=== PATIENT | female | born 1985 | race African-American/Black ===

== ENCOUNTER 2018-08-24 17:30 | Emergency (ER) | payer OTHER | END 2018-08-24 22:47 | disposition home or self-care (01) | LOC: JER 17:30 ==

== ENCOUNTER 2019-12-23 10:00 | Inpatient (IN) | payer OTHER ==
--- OUTSIDE RECORDS SUMMARY | 2019-12-23 10:16 | XMS ---
:1985 Author Organization [facility] Support Name Relationship Address Phone [employer] Unavailable [address] [place] [address] DARRION LANDRUM [address] [place] [address] DARRION LANDRUM Unavailable [address] [place] [address] Re-disclosure Warning The records that you are about to access may contain information from federally- assisted alcohol or drug abuse programs. If such information is present, then the following federally mandated warning applies: This information has been disclosed to you from records protected by federal confidentiality rules (42 CFR part 2). The federal rules prohibit you from making any further disclosure of this information unless further disclosure is expressly permitted by the written consent of the person to whom it pertains or as otherwise permitted by 42 CFR part 2. A general authorization for the release of medical or other information is NOT sufficient for this purpose. The Federal rules restrict any use of the information to criminally investigate or prosecute any alcohol or drug abuse patient.The records that you are about to access may contain highly sensitive health information, the redisclosure of which is protected by Article 27-F of the [facility] Public Health law. If you continue you may haveaccess to information: Regarding HIV / AIDS; Provided by facilities licensed or operated by the [facility] Office of Mental Health; or Provided by the [facility] Office for People With Developmental Disabilities. If such information is present, then the following [facility] mandated warning applies: This information has been disclosed to you from confidential records which are protected by state law. State law prohibits you from making any further disclosure of this information without the specific written consent of the person to whom it pertains, or as otherwise permitted by law. Any unauthorized further disclosure in violation of state law may result in a fine or mcfp sentence or both. A general authorization for the release of medical or other information is NOT sufficient authorization for further disclosure. Allergies and Adverse Reactions Type Description Substance Reaction Status Data Source(s ) No Known No Known Allergies No Known eCW3 ( [place] Allergies Allergies [facility]) Encounters Encounter Providers Location Date Indications Data Source(s ) Outpatient [facility] 08/10/2018 eCW3 ([facility] A28 12:00:00 AM Health Care) EDT - 08/10/2018 12:00:00 AM EDT Medications Medication Brand Start Product Dose Route Administrative Pharmacy [facility] Indications Reaction Description Data Name Date Form Instructions Instructions Source(s) Ondansetron Ondans .0 active Ondanse ozzie eCW3 4 MG etron 2019 {tabl 4 MG ([place] Disintegrat 4 MG 12:00: et_on [place] ing Oral 00 AM _[facility]_ [facility] EST [facility]) e_and _allo w_to_ disso lve} valacyclovi Valacy .0 active Valacyc lovir eCW3 r 500 MG clovir 2012 {tabl HCl 500 mg (H udson Oral Tablet HCl 12:00: et} [place] Valacyclovi 500 mg 00 AM Healt h r HCl 500 T Care) mg UNK 12/27/ suspend eC W3 Vitamins 2009 ed Vitamins ([place] (Dis) 12:00: (Dis) [place] 00 AM Health EDT Care) Vitamin B12 UNK suspend Vitamin B1 2 eCW3 ed ([facility]) Apixaban UNK suspend Apixaban eCW3 ed ([facility]) LOVENOX UNK active LOVENOX eCW3 ([facility]) Insurance Providers Payer name Policy type / Policy ID Covered Covered democrat's Policy Plan Coverage type democrat ID relationship to Vang Information vang [employer] PPO [id number] Problems, Conditions, and Diagnoses Code Display Name Description Problem Type Effective Data Dates Source(s) Z86.711 History of History of Problem 03/24/2019 eCW3 ([place] pulmonary embolism pulmonary embolism 12:00:00 [facility]) A60.04 Herpes simplex Herpes simplex Problem 06/06/2017 eCW3 ( [place] vulvovaginitis vulvovaginitis 12:00:00 AM [facility]) Z33.1 Problem eCW3 ([facility]) Social History Code Duration Value Status Description Data Source(s ) Smoking 06/17/2019 12:00:00 Never Smoker completed Never Smoker e CW3 ([facility]) Never Smoker completed Never Smoker eCW3 ([facility])
[2019-12-23] MEDS: ELECTROLYTE-148 SOLN 1,000 ML IV SCH ×2 (10:30→15:47)
[2019-12-23] MEDS ORDERED: BUTORPHANOL TARTRATE 1 MG/ML VIAL IVPB PRN (10:51)
[2019-12-23] MEDS ORDERED: PROMETHAZINE HCL 25 MG/1 ML VIAL IVPUSH PRN (10:51)
--- NOTE | 2019-12-23 10:59 | HP ---
Past Medical History - Admission Chief Complaint: Induction of Labor History of Present Illness: 34yo @ 38.1wks by LMP/sono here for IOL given h/o VTE. Delivery at 38/39 weeks recommended by MFM. Occ contractions. No VB/LOF. 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 PNC @ [facility] ([facility]) History Source: Patient - Past Medical History KEG HEADER: No: Alzheimer's, CVA, Dementia, Migraine, Multiple Sclerosis, Peripheral Neuropathy, Parkinson's, Seizure, Syncope, TIA, Vertigo, Other Cardiovascular: No: AFIB, Aneurysm, Aortic Insufficiency, Aortic Stenosis, CAD, CHF, Deep Vein Thrombosis, HTN, Hyperlipdemia, [place], Mitral Insufficiency, Mitral Stenosis, Murmur, Pulmonary Hypertension, Other Pulmonary: Yes: Pulmonary Embolus Gastrointestinal: No: Ascites, Cancer, Constipation, Crohn's Disease, Diverticulitis, Diverticulosis, Esophageal Varices, Gastritis, GERD, GI Bleed, Hemorrhoids, Hiatal Hernia, Inflamatory Bowel Disease, Irritable Bowel Disease, Pancreatitis, Peptic Ulcer Disease, Ulcerative Colitis, Other Renal/: No: Renal Failure, Renal Inusuff, BPH, Cancer, Hematuria, Hemodialysis, Neurogenic Bladder, Renal Calculi, UTI, Other Reproductive: No: Ectopic , Endometriosis, Fibroids, PID, Polycystic Ovary Syndrome, Postmenopausal, Other ...: 6 ...Para: 3 ...Term: 3 ...: 0 ...Spon : 1 ...Induced : 0 ...Living Children: 3 ... Weeks Gestation by Dates: 38.1 ...EDC by Dates: 01/05/20 ...EDC by Sono: 01/07/20 Heme/Onc: No: Anemia, B12 Deficiency, Bleeding Disorder, Cancer, Current Chemotherapy, Current Radiation Therapy, Hemochromatosis, Hypercoaguable State, Myeloproliferative Synd, Sickle Cell Disease, Sickle Cell Trait, Thrombocytopenia, Other Infectious Disease: No: AIDS, C-Diff, Herpes Zoster, HIV, MRSA, STD's, Tuberculosis, VREF, Other Psych: No: Addictions, Anxiety, Bipolar, Depression, Panic, Psychosis, Schizoph chiara, Other Musculoskeletal: No: Bursitis, Chronic low back pain, Hemiparesis, Hemiplegia, Osteoarthritis, Paraplegia, Other Rheumatology: No: Fibromyalgia, Gout, Lupus, Rheumatoid Arthritis, Sarcoidosis, Vasculitis, Other ENT: No: Allergic Rhinitis, Sinusitis, Other Endocrine: No: Bristol's Disease, Hasmukh's Disease, Diabetes Insipidus, Diabetes Mellitus, Hyperparathyroidism, Hyperthyroidism, Hypothyroidism, Osteopenia, SIADH, Other - Past Surgical History Past Surgical History: Yes: None Hx Myomectomy: No Hx Transabdominal Cerclage: No - Smoking History Smoking history: Never smoked Have you smoked in the past 12 months: No Aproximately how many cigarettes per day: 0 - Alcohol/Substance Use Hx Alcohol Use: No - Social History Usual Living Arrangement: Yes: With Spouse Do you think of yourself as: Straight/Heterosexual ADL: Independent History of Recent Travel: No Home Medications - Allergies Allergies/Adverse Reactions: Allergies Allergy/AdvReac Type Severity Reaction Status Date / Time No Known Drug Allergies Allergy Verified 12/13/12 02:16 - Home Medications Home Medications: Ambulatory Orders Pnv with Ca,No.72/Iron/FA [ Plus Tablet] 1 tab PO DAILY 12/12/12 Valacyclovir HCl [Valtrex -] 500 mg PO DAILY 12/12/12 Acetaminophen [Tylenol .Regular Strength -] 325 mg PO Q3H PRN #2 tablet 12/13/12 Ferrous Sulfate [Feosol] 325 mg PO BID #1 ud 12/13/12 Ibuprofen [Motrin -] 600 mg PO Q4H PRN #1 tablet 12/13/12 Vitamins (Sjr) - 1 tab PO DAILY #1 tablet 12/13/12 Review of Systems - Review of Systems Constitutional: reports: No Symptoms Cardiovascular: reports: No Symptoms Respiratory: reports: No Symptoms Gastrointestinal: reports: No Symptoms Physical Exam - Maternity Constitutional: Yes: Well Nourished, No Distress, Calm - Abdominal Exam/OB Number of Fetuses: Single Presentation: Vertex Contractions: Yes Regularity: Irregular Intensity: Unaware Monitor Mode: External Heart Rate Location: [facility] Category: I Accelerations: Non-Uniform Decelerations: None - Vaginal Exam/OB Vaginal Bleeding: No Dilatation (cm): 2 Effacement (%): 50 Amniotic Membrane Status: Intact Presentation: Vertex/Position Station: -3 - Physical Exam Edema: No Hemorrhage Risk Assessment - Risk Factors Medium Risk Factors: Yes: None High Risk Factors: Yes: None (On Anticoagulation for h/o VTE) Risk Score: 1 Risk Level: Medium Risk Imaging - Results Ultrasound: Report Reviewed Problem List - Problems (1) 38 weeks gestation of Code(s): Z3A.38 - 38 WEEKS GESTATION OF Assessment/Plan 34yo @ 38.1wks here for IOL given VTE history, recommended by MFM Admit to L&D Admission labs including Coags, COVID (negative) Cat I tracing, continuous EFM/toco Pitocin/Harry bulb; AROM when favorable Last Lovenox at 10/ 8PM. Will restart Lovenox 4-12 hours PP pending mode of delivery Stadol/epidural prn Anticipate JIN Nicole MD
[2019-12-23] MEDS ORDERED: OXYTOCIN 30 UNITS in 0.9% NS 30 UNIT/500 ML INFUS.BAG IVPB SCH (11:00)
[2019-12-23 11:14] LABS: BASO % 0.4 % (0-2.0); EOS % 0.3 % (0-4.5); HEMATOCRIT 31.3 % (32.4-45.2); HEMOGLOBIN 10.7 GM/dL (10.7-15.3); LYMPH % 22.7 % (8-40); MCH 31.8 pg (25.7-33.7); MCHC 34.2 g/dl (32.0-36.0); MEAN CELL VOLUME 92.8 fl (80-96); MEAN PLT VOLUME 7.9 fl (7.5-11.1); MONO % 7.5 % (3.8-10.2); NEUT % 69.1 % (42.8-82.8); PLATELET COUNT 303 K/MM3 (134-434); RBC 3.37 M/mm3 (3.60-5.2); WHITE BLOOD COUNT 10.3 K/mm3 (4.0-10.0)
[2019-12-23] MEDS ORDERED: OXYTOCIN 20 UNITS in 0.9% NS 20 UNIT/1,000 ML INFUS.BAG IV ONE (11:28)
[2019-12-23 11:38] LABS: BLOOD UREA NITROGEN 6.6 mg/dL (7-18); CREATININE 0.6 mg/dL (0.55-1.3); POTASSIUM 3.9 mmol/L (3.5-5.1)
[2019-12-23 11:39] LABS: INR 1.07 (0.83-1.09); PROTHROMBIN TIME (PATIENT) 12.6 SEC (9.7-13.0)
[2019-12-23 11:42] LABS: ACTIVATED PTT 26.1 SECONDS (25.2-36.5)
[2019-12-23 12:27] VITALS: BMI 33.0
--- NOTE | 2019-12-23 16:46 | PN ---
Progress Note, Labor Vaginal Exam #1 Labor Exam Date: 12/23/19 Labor Exam Time: 16:45 Heart Rate (range): Cat I Dilatation: 6 Effacement (%): 50 Amniotic Membrane Status: Intact Presentation: Vertex/Position Station: -3 Remarks: Having intermittent variable decels; pt examined and FB sitting in vagina Now 6cm AROM Epidural prn FHT improved Anticipate Joshua Nicole MD
--- NOTE | 2019-12-23 18:20 | PN ---
Progress Note, Labor Vaginal Exam #2 Labor Exam Date: 12/23/19 Labor Exam Time: 18:19 Heart Rate (range): Cat I Dilatation: 7-8 Effacement (%): 100 Amniotic Membrane Status: Ruptured Presentation: Vertex/Position Station: -2 Remarks: More uncomfortable Feeling pressure Declining epidural Anticipate Joshua Nicole MD
[2019-12-23] MEDS ORDERED: BISACODYL 10 MG SUPP.RECT RC PRN (19:03)
[2019-12-23] MEDS ORDERED: METHYLERGONOVINE MALEATE 0.2 MG/1 ML AMP IM PRN (19:03)
[2019-12-23] MEDS ORDERED: BENZOCAINE 20% 57 GM BOTTLE TP PRN (19:03)
[2019-12-23] MEDS ORDERED: BENZOCAINE 28 GM HEMORRHOIDAL OINTMENT TP PRN (19:03)
[2019-12-23] MEDS ORDERED: WITCH HAZEL 50% (TUCKS) 40 PAD/JAR PAD TP PRN (19:03)
--- NOTE | 2019-12-23 19:03 | PN ---
Delivery - Delivery Vaginal Delivery: Spontaneous Episiotomy/Laceration: None EBL (cc): 250 Delivery, Single - Stages of Labor Placenta: Yes: Spontaneous - Condition of Flight Kitchen Manager/Childcare Administrator Present: No Gender: Male Position: Right, OA - 1 Minute Total Score: 9 5 Minutes Total Score: 9 - Feeding Plan Initial Plan: Elected not to breastfeed exclusively throughout hospitalization Remarks - Remarks Remarks: of VMI from COLLEEN position over intact perineum. 38 week . No anesthesia. Spontaneous delivery of anterior shoulder and body. Nuchal x 1 delivered through. No meconium. Apgars 9/9. Weight pending to allow skin to skin. Spontaneous delivery of intact placenta with 3VC. Fundus firm. Perineum inspected, no lacerations. EBL 250ml. Mother and baby doing well. Lay Nicole MD
[2019-12-23] MEDS ORDERED: OXYTOCIN 20 UNITS in 0.9% NS 20 UNIT/1,000 ML INFUS.BAG IV SCH (19:15)
[2019-12-23] MEDS: IBUPROFEN 600 MG TABLET (FP) PO PRN (21:53)
[2019-12-23] MEDS: ACETAMINOPHEN 325 MG TABLET (FP) PO PRN (21:53)
[2019-12-24] MEDS: ACETAMINOPHEN 325 MG TABLET (FP) PO PRN ×2 (00:15→15:58)
[2019-12-24] MEDS: IBUPROFEN 600 MG TABLET (FP) PO PRN ×2 (00:16→15:58)
[2019-12-24] MEDS: ENOXAPARIN NA (PORCINE) 40 MG/0.4 ML DISP.SYRIN SQ SCH (00:17)
[2019-12-24 07:51] LABS: BASO % 0.2 % (0-2.0); EOS % 0.4 % (0-4.5); HEMATOCRIT 31.2 % (32.4-45.2); HEMOGLOBIN 10.5 GM/dL (10.7-15.3); LYMPH % 25.8 % (8-40); MCHC 33.5 g/dl (32.0-36.0); MEAN CELL VOLUME 92.6 fl (80-96); MEAN PLT VOLUME 7.7 fl (7.5-11.1); MONO % 6.2 % (3.8-10.2); NEUT % 67.4 % (42.8-82.8); PLATELET COUNT 266 K/MM3 (134-434); RBC 3.37 M/mm3 (3.60-5.2); RDW 15.2 % (11.6-15.6)
[2019-12-24] MEDS: PRENATAL VITAMINS W/ FOLIC ACID TABLET (FP) PO SCH (09:18)
--- NOTE | 2019-12-24 13:41 | PN ---
Post Progress Note - Subjective Subjective: Pain controlled. Lochia < menses. No issues. . No fevers/chills. Post Day: 1 Type of Delivery: Vital Signs: Vital Signs Temperature 98.1 F 12/24/19 08:00 Pulse Rate 95 H 12/24/19 08:00 Respiratory Rate 18 12/24/19 09:00 Blood Pressure 119/78 12/24/19 08:00 O2 Sat by Pulse Oximetry (%) 94 L 12/24/19 09:00 Uterus: Yes: Fundus below umbilicus Abdomen/GI: Yes: Abdomen soft, Tolerating PO Lochia: Yes: Rubra Lochia, amount: Small Extremities: Yes: Calves non-tender Perineum: Yes: Intact Activity: Ambulating - Labs Labs: CBC WBC 14.0 K/mm3 (4.0-10.0) H 12/24/19 07:16 RBC 3.37 M/mm3 (3.60-5.2) L 12/24/19 07:16 Hgb 10.5 GM/dL (10.7-15.3) L 12/24/19 07:16 Hct 31.2 % (32.4-45.2) L 12/24/19 07:16 MCV 92.6 fl (80-96) 12/24/19 07:16 MCH 31.0 pg (25.7-33.7) 12/24/19 07:16 MCHC 33.5 g/dl (32.0-36.0) 12/24/19 07:16 RDW 15.2 % (11.6-15.6) 12/24/19 07:16 Plt Count 266 K/MM3 (134-434) 12/24/19 07:16 MPV 7.7 fl (7.5-11.1) 12/24/19 07:16 Absolute Neuts (auto) 9.4 K/mm3 (1.5-8.0) H 12/24/19 07:16 Neutrophils % 67.4 % (42.8-82.8) 12/24/19 07:16 Lymphocytes % 25.8 % (8-40) 12/24/19 07:16 Monocytes % 6.2 % (3.8-10.2) 12/24/19 07:16 Eosinophils % 0.4 % (0-4.5) 12/24/19 07:16 Basophils % 0.2 % (0-2.0) 12/24/19 07:16 Nucleated RBC % 0 % (0-0) 12/24/19 07:16 Problem List - Problems (1) 38 weeks gestation of Code(s): Z3A.38 - 38 WEEKS GESTATION OF Assessment/Plan 34yo s/p , PPD#1 Routine PP care PO pain control OOB, ambulate D/C to home by PPD#2 Joshua Nicole MD
[2019-12-24] MEDS ORDERED: SENNOSIDES/DOCUSATE COMBO (SENNA PLUS) TABLET (UD) PO PRN (22:00)
[2019-12-25] MEDS: PRENATAL VITAMINS W/ FOLIC ACID TABLET (FP) PO SCH (09:11)
[2019-12-25] MEDS: ENOXAPARIN NA (PORCINE) 40 MG/0.4 ML DISP.SYRIN SQ SCH (09:13)
[2019-12-25 09:15] VITALS: BP 129/67; PULSE 74; TEMP 98.4
--- NOTE | 2019-12-25 12:28 | DS ---
Physical Examination Vital Signs: Vital Signs Temperature 98.4 F 12/25/19 09:14 Pulse Rate 74 12/25/19 09:14 Respiratory Rate 19 12/25/19 09:14 Blood Pressure 129/67 12/25/19 09:14 O2 Sat by Pulse Oximetry (%) 98 12/25/19 09:14 Constitutional: Yes: Well Nourished, No Distress, Calm Eyes: Yes: WNL, Conjunctiva Clear, EOM Intact HENT: Yes: WNL, Atraumatic, Normocephalic Neck: Yes: WNL, Supple, Trachea Midline Cardiovascular: Yes: WNL, Regular Rate and Rhythm Respiratory: Yes: WNL, Regular, CTA Bilaterally Gastrointestinal: Yes: WNL, Normal Bowel Sounds Musculoskeletal: Yes: WNL Extremities: Yes: WNL Edema: No Integumentary: Yes: WNL Neurological: Yes: WNL, Alert, Oriented ...Motor Strength: WNL Psychiatric: Yes: WNL Labs: CBC, BMP 12/24/19 07:16 12/23/19 10:45 Discharge Summary Problems reviewed: Yes Reason For Visit: INDUCTION OF LABOR Current Active Problems 38 weeks gestation of (Acute) Procedures: Principal: Hospital Course: Patient presented for IOL given her history of PE and anticoagulation She had an uncomplicated She met all milestones She was discharged home on PPD#2 with plans to continue once daily Lovenox 40mg Joshua Nicole MD Condition: Stable - Instructions Diet, Activity, Other Instructions: Regular Diet Continue with your daily Lovenox until you see your Front Office Associate Referrals: Lay Nicole MD [Staff Physician] - Disposition: HOME - Home Medications Comprehensive Discharge Medication List: Ambulatory Orders Valacyclovir HCl [Valtrex -] 500 mg PO DAILY 12/12/12 Vitamins (Sjr) - 1 tab PO DAILY #1 tablet 12/13/12 Enoxaparin [Lovenox -] 60 mg SQ DAILY 12/23/19 Breast Pump 1 each MC 5XD 30 Days #1 each 12/24/19 Ibuprofen 600 mg PO Q6H PRN #30 tablet 12/24/19
== END 2019-12-25 12:45 | disposition home or self-care (01) | DRG 806 ==
LOC: JLDR 10:00 → J3W 20:26
PROVIDERS: ADMIT Obstetrics & Gynecology; ATTEND Obstetrics & Gynecology
PROC: 10E0XZZ Delivery of Products of Conception, External Approach (ICD-10-PCS; principal; 2019-12-23)
PROC: 0U7C7ZZ Dilation of Cervix, Via Natural or Artificial Opening (ICD-10-PCS; 2019-12-23)
PROC: 10907ZC Drainage of Amniotic Fluid, Therapeutic from Products of Conception, Via Natural or Artificial Opening (ICD-10-PCS; 2019-12-23)
DX: O69.81X0 Labor and delivery complicated by cord around neck, without compression, not applicable or unspecified (principal); O98.32 Other infections with a predominantly sexual mode of transmission complicating childbirth; A60.00 Herpesviral infection of urogenital system, unspecified; Z37.0 Single live birth; Z86.711 Personal history of pulmonary embolism; Z79.01 Long term (current) use of anticoagulants; Z3A.38 38 weeks gestation of pregnancy
CPT/HCPCS: 36415; 59409; 80048; 85025; 85610; 85730; 86780; 86850; 86900; 86901